=== PATIENT | male | born 1935 | race Caucasian/White ===

== ENCOUNTER 2017-03-29 11:00 | Emergency (ER) | payer MEDICARE ==
[~2017-03-29] VITALS: Ht 172.7 cm; Wt 80.0 kg
[~2017-03-29 11:00] MED LIST: ASPI325T PO; ATOR40TA49 PO; B12-1CHW CHEW; CLEO300C2 PO; CREO2400 PO; DOXY100T17 PO; IMDU30TA PO; INSU100V2 SQ; LANTUSP SQ; LEVE500T10 PO; LISI-363 PO; METO25TA6 PO; OMPR20CCR PO; PARO20TA PO
[2017-03-29 11:05] VITALS: BP 194/94; PULSE 60; RESP 20; TEMP 96.9; O2SAT 96
--- NOTE | 2017-03-29 11:40 | PD ---
HPI Chief Complaint: Laceration/Skin Injury Time Seen by Provider: 11:18 Travel History International Travel<30 days: No Contact w/Intl Traveler<30days: No Traveled to known affect area: No History of Present Illness HPI 81-year-old male presents to the emergency room for evaluation of a laceration to his left dorsal hand that occurred just prior to arrival. Patient was lying weather stripping to his door. While cutting the stripping with his razor blade , it slipped and cut his left hand. States he cannot get the bleeding to stop which is mostly the reason he came to the emergency room. He did not wash it but applied pressure. He takes baby aspirin daily. Denies loss of range of motion or significant pain. Last tetanus was one year ago. 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 Reported Meds & Prescriptions Reported Meds & Active Scripts Active Doxycycline Hyclate 100 Mg Tab 100 Mg PO BID 7 Days Cleocin (Clindamycin HCl) 300 Mg Cap 300 Mg PO QID Reported Humulin R (Insulin Human Regular) 100 Units/Ml Vial 1 Unit SQ SLIDINGSCALE Creon (Amylase/Lipase/Protease) 24,000 Unt Cap 1 Cap PO DAILY GIVE WITH FOOD Lipitor 40 Mg Tab (Atorvastatin Calcium) 40 Mg Tab 40 Mg PO DAILY Lisinopril 20 Mg Tab 25 Mg PO DAILY Lantus (Insulin Glargine) 100 Units/Ml Inj 14 SQ HS UNKNOWN DOSE [id number] (Mecobalamin) 1 Mg Chw 1 Mg CHEW DAILY Prilosec 20 Mg Cap (Omeprazole) 20 Mg Capcr 20 Mg PO DAILY Toprol Xl 25 mg Tab (Metoprolol Succinate) 25 Mg Tabcr 25 Mg PO DAILY Levetiracetam 500 Mg Tab 500 Mg PO DAILY Paroxetine Hcl (Paroxetine HCl) 20 Mg Tab 20 Mg PO DAILY Imdur (Isosorbide Mononitrate) 30 Mg Tab 30 Mg PO DAILY Aspirin 325 Mg Tab (Aspirin) 325 Mg Tab 325 Mg PO DAILY Review of Systems Except as stated in HPI: all other systems reviewed are Neg Physical Exam Narrative GENERAL: Well-nourished, well-developed male in no acute distress. Afebrile. Ambulatory. SKIN: Focused skin assessment warm/dry. There is a 3 cm superficial laceration to the left dorsal hand that is well approximated. HEAD: Normocephalic. EYES: No scleral icterus. No injection or drainage. NECK: Supple, trachea midline. No JVD or lymphadenopathy. CARDIOVASCULAR: Regular rate and rhythm without murmurs, gallops, or rubs. RESPIRATORY: Breath sounds equal bilaterally. No accessory muscle use. MUSCULOSKELETAL: No cyanosis, or edema. Full range motion of the left hand. Less than 2 second capillary refill distally. Data Data Last Documented VS Vital Signs Date Time Temp Pulse Resp B/P (MAP) Pulse Ox O2 Delivery O2 Flow Rate FiO2 03/29/17 11:05 96.9 60 20 194/94 (127) 96 Room Air MDM Medical Decision Making Medical Screen Exam Complete: Yes Emergency Medical Condition: Yes Medical Record Reviewed: Yes Differential Diagnosis Laceration, skin tear, contusion, bleeding wound Narrative Course 81-year-old male presents to the emergency room for evaluation of laceration to the left dorsal hand that occurred just prior to arrival. Patient accidentally cut himself with a razor blade. He could not get the bleeding to stop. Physical exam reveals a 3 cm superficial laceration to the left dorsal hand that is well approximated and not bleeding. There is no neurovascular or tendon injury. Laceration was thoroughly cleansed and repaired with Steri- Strips and glue. Patient was provided with wound care instructions and told to follow up with the primary care physician as needed or return for worsening symptoms. He understands and agrees to plan. Diagnosis Primary Impression: Laceration of left hand Qualified Codes: S61.412A - Laceration without foreign body of left hand, initial encounter Referrals: Primary Care Physician Additional Instructions: Keep wound clean and dry. Once glue and Steri-Strips fall off, Apply triple antibiotic ointment daily until healed. Follow-up with a primary care physician as needed. Return to the emergency room for signs of infection. Disposition: 01 DISCHARGE HOME Condition: Stable Mena [place] Mar 29, 2017 11:40
== END 2017-03-29 11:48 | disposition home or self-care (01) ==
LOC: NEPK 11:00
DX: S61.412A Laceration without foreign body of left hand, initial encounter (principal); E11.9 Type 2 diabetes mellitus without complications; W27.8XXA Contact with other nonpowered hand tool, initial encounter; Z79.4 Long term (current) use of insulin; Z79.899 Other long term (current) drug therapy
CPT/HCPCS: 12002

== ENCOUNTER 2017-05-10 20:54 | Observation (INO) | payer MEDICARE ==
[~2017-05-10] VITALS: Ht 170.2 cm; Wt 81.0 kg
[2017-05-10 20:57] VITALS: BP 167/90; PULSE 91; RESP 22; TEMP 98.6; O2SAT 95
[2017-05-10 21:08] VITALS: BP 157/67; PULSE 69; RESP 18; TEMP 98.1; O2SAT 96
[2017-05-10] MEDS: NITROGLYCERIN 0.4 MG SL 25 TABS/BTL SL SCH ×3 (21:15→21:25)
[2017-05-10] MEDS ORDERED: SODIUM CHLORIDE 0.9% FLUSH 10 ML FLUSH IVF PRN (21:15)
[2017-05-10] MEDS ORDERED: ASPIRIN 81 MG CHEW TAB PO ONE (21:15)
--- NOTE | 2017-05-10 21:15 | PD ---
HPI Chief Complaint: Chest Pain Time Seen by Provider: 21:02 Travel History International Travel<30 days: No Contact w/Intl Traveler<30days: No Traveled to known affect area: No History of Present Illness HPI 82-year-old male presents with history of dementia, pancreatic cancer colon cancer both in remission, presents to the emergency department with his for evaluation of acute onset chest pressure that began approximately 2 hours ago. He did have an episode of emesis. He also felt short of breath. The pain radiated to his jaw and behind his eye. He is currently having moderate pain. Is not radiating anywhere. He denies any recent illnesses, fever, chills. Has no other symptoms to report. Patient's last stress test was about 2 years ago per his . 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 [facility] Past Medical History Heart Rhythm Problems: Yes (PACEMAKER) Cancer: Yes (HX PANCREATIC, COLON) Dementia: Yes Diabetes: Yes Patient Takes Glucophage: No Diminished Hearing: No Hypertension: Yes Immunizations Current: Yes Past Surgical History Body Medical Devices: PACEMAKER Cardiac Surgery: Yes (BYPASS) Genitourinary Surgery: Yes (3X HERNIA, COLON RESECTION, WHIPPLE) Social History Alcohol Use: No Tobacco Use: No Substance Use: No Allergies-Medications (Allergen,Severity, Reaction): Coded Allergies: erythromycin base (Unverified Allergy, Mild, 05/10/17) *MDRO Multi-Drug Resistant Organism (Verified Allergy, Unknown, 05/10/17) MRSA Reported Meds & Prescriptions Reported Meds & Active Scripts Active Reported Lisinopril 2.5 Mg Tab 2.5 Mg PO DAILY Levetiracetam 750 Mg Tab 750 Mg BID B-12 (Cyanocobalamin) 1,000 Mcg Subl 1,000 Mcg SL DAILY Aspirin EC (Aspirin) 325 Mg Tabdr 325 Mg PO DAILY Lorazepam 0.5 Mg Tab 0.5 Mg PO DAILY PRN Metoprolol Tartrate 25 Mg Tab 12.5 Mg PO BID Isosorbide Mononitrate 10 Mg Tab 30 Mg PO DAILY Take 2 doses 7 hours apart. Ipratropium Nasal 0.06% Suches 2 Suches EACH NARE BID Lantus Inj (Insulin Glargine) 1,000 Unit/10 Ml Vial 16 Units SQ HS Fluocinonide Topical (Fluocinonide) 0.05% Cream 1 Applic TOPICAL BID Apply thin layer to affected area(s) Creon (Amylase/Lipase/Protease) 24,000-76,000-120,000 Units Cap 1 Cap PO DAILY Calcipotriene Topical (Calcipotriene) 0.005% Oint 1 Applic TOPICAL DAILY Atorvastatin (Atorvastatin Calcium) 80 Mg Tab 80 Mg PO HS Artificial Tears Opth Drops (Polyvinyl Alcohol) 1.4% Soln 1-2 Drop EACH EYE PRN PRN Review of Systems Except as stated in HPI: all other systems reviewed are Neg Physical Exam Narrative GENERAL: Well-nourished, pleasantly confused, elderly male patient, lying in bed in no acute distress. SKIN: Focused skin assessment warm/dry. HEAD: Atraumatic. Normocephalic. EYES: Pupils equal and round. No scleral icterus. No injection or drainage. ENT: No nasal bleeding or discharge. Mucous membranes pink and moist. NECK: Trachea midline. No JVD. CARDIOVASCULAR: Regular rate and rhythm. RESPIRATORY: No accessory muscle use. Clear to auscultation. Breath sounds equal bilaterally. GASTROINTESTINAL: Abdomen soft, non-tender, nondistended. Hepatic and splenic margins not palpable. MUSCULOSKELETAL: No obvious deformities. No clubbing. No cyanosis. No edema. NEUROLOGICAL: Awake and alert. No obvious cranial nerve deficits. Motor grossly within normal limits. Normal speech. PSYCHIATRIC: Appropriate mood and affect; insight and judgment normal. Data Data Last Documented VS Vital Signs Date Time Temp Pulse Resp B/P (MAP) Pulse Ox O2 Delivery O2 Flow Rate FiO2 05/10/17 21:16 98 Room Air 05/10/17 21:16 18 05/10/17 21:08 98.1 69 Orders Orders Electrocardiogram (05/10/17 21:07) Basic Metabolic Panel (Bmp) (05/10/17 21:07) B-Type Natriuretic Peptide (05/10/17 21:07) Ckmb (Isoenzyme) Profile (05/10/17 21:07) Complete Blood Count With Diff (05/10/17 21:07) Magnesium (Mg) (05/10/17 21:07) Prothrombin Time / Inr (Pt) (05/10/17 21:07) Act Partial Throm Time (Ptt) (05/10/17 21:07) Troponin I (05/10/17 21:07) Lipase (05/10/17 21:07) Chest, Single Ap (05/10/17 21:07) Ecg Monitoring (05/10/17 21:07) Bilateral Bp Monitoring (05/10/17 21:07) Iv Access Insert/Monitor (05/10/17 21:07) Oximetry (05/10/17 21:07) Oxygen Administration (05/10/17 21:07) Aspirin Chew (Aspirin Chew) (05/10/17 21:15) Sodium Chloride 0.9% Flush (Ns Flush) (05/10/17 21:15) Nitroglycerin Sl (Nitrostat Sl) (05/10/17 21:15) CKMB (05/10/17 21:20) CKMB% (05/10/17 21:20) Activity Bed Rest With Brp (05/10/17 22:38) Vital Signs (Adult) Q4H (05/10/17 22:38) Cardiac Rhythm .As Directed (05/10/17 22:38) Notify Dr: Other .PRN (05/10/17 22:38) Notify DrYousuf Parameters (05/10/17 22:38) Resp Oxygen Nasal Cannula (05/10/17 ) Diet Npo (05/11/17 Breakfast) Ckmb (Isoenzyme) Profile (05/11/17 00:20) Ckmb (Isoenzyme) Profile (05/11/17 03:20) Troponin I (05/11/17 00:20) Troponin I (05/11/17 03:20) Electrocardiogram (05/11/17 00:20) Electrocardiogram (05/11/17 03:20) ^ Obtain (05/10/17 22:38) Sodium Chloride 0.9% Flush (Ns Flush) (05/10/17 22:45) Sodium Chloride 0.9% Flush (Ns Flush) (05/11/17 09:00) Acetaminophen (Tylenol) (05/10/17 22:45) Nitroglycerin Sl (Nitrostat Sl) (05/10/17 22:45) Drug Safety Physician / Telemetry SYLVESTER.Q8H (05/10/17 22:38) Chandan Bilateral/Knee High SYLVESTER.QSHIFT (05/10/17 22:38) Admit Order (Ed Use Only) (05/10/17 22:41) Labs Laboratory Tests Test 05/10/17 21:20 White Blood Count 4.7 TH/MM3 Red Blood Count 4.15 MIL/MM3 Hemoglobin 13.6 GM/DL Hematocrit 38.9 % Mean Corpuscular Volume 93.9 FL Mean Corpuscular Hemoglobin 32.8 PG Mean Corpuscular Hemoglobin Concent 34.9 % Red Cell Distribution Width 14.1 % Platelet Count 162 TH/MM3 Mean Platelet Volume 8.1 FL Neutrophils (%) (Auto) 86.8 % Lymphocytes (%) (Auto) 8.5 % Monocytes (%) (Auto) 3.4 % Eosinophils (%) (Auto) 1.0 % Basophils (%) (Auto) 0.3 % Neutrophils # (Auto) 4.1 TH/MM3 Lymphocytes # (Auto) 0.4 TH/MM3 Monocytes # (Auto) 0.2 TH/MM3 Eosinophils # (Auto) 0.0 TH/MM3 Basophils # (Auto) 0.0 TH/MM3 CBC Comment DIFF FINAL Differential Comment Prothrombin Time 11.1 SEC Prothromb Time International Ratio 1.1 RATIO Activated Partial Thromboplast Time 20.4 SEC Blood Urea Nitrogen 18 MG/DL Creatinine 1.46 MG/DL Random Glucose 104 MG/DL Calcium Level 8.9 MG/DL Magnesium Level 2.1 MG/DL Sodium Level 139 MEQ/L Potassium Level 4.1 MEQ/L Chloride Level 104 MEQ/L Carbon Dioxide Level 25.4 MEQ/L Anion Gap 10 MEQ/L Estimat Glomerular Filtration Rate 46 ML/MIN Total Creatine Kinase 332 U/L Creatine Kinase MB 4.5 NG/ML Creatine Kinase MB % 1.4 % Troponin I LESS THAN 0.02 NG/ML B-Type Natriuretic Peptide 66 PG/ML Lipase 139 U/L [facility] Medical Decision Making Medical Screen Exam Complete: Yes Emergency Medical Condition: Yes Medical Record Reviewed: Yes Differential Diagnosis ACS versus pleuritic pain versus chest wall pain versus muscle spasm Narrative Course 82-year-old male presents to emergency department for evaluation of chest pain, acute onset 2 hours prior to arrival. Patient appears well without distress. EKG is complete and reviewed by my attending. Patient did take an aspirin today prior to arrival. We gave him sublingual nitroglycerin. Upon reassessment, pain has completely resolved following the nitroglycerin. Laboratory Tests Test 05/10/17 21:20 White Blood Count 4.7 TH/MM3 Red Blood Count 4.15 MIL/MM3 Hemoglobin 13.6 GM/DL Hematocrit 38.9 % Mean Corpuscular Volume 93.9 FL Mean Corpuscular Hemoglobin 32.8 PG Mean Corpuscular Hemoglobin Concent 34.9 % Red Cell Distribution Width 14.1 % Platelet Count 162 TH/MM3 Mean Platelet Volume 8.1 FL Neutrophils (%) (Auto) 86.8 % Lymphocytes (%) (Auto) 8.5 % Monocytes (%) (Auto) 3.4 % Eosinophils (%) (Auto) 1.0 % Basophils (%) (Auto) 0.3 % Neutrophils # (Auto) 4.1 TH/MM3 Lymphocytes # (Auto) 0.4 TH/MM3 Monocytes # (Auto) 0.2 TH/MM3 Eosinophils # (Auto) 0.0 TH/MM3 Basophils # (Auto) 0.0 TH/MM3 CBC Comment DIFF FINAL Differential Comment Prothrombin Time 11.1 SEC Prothromb Time International Ratio 1.1 RATIO Activated Partial Thromboplast Time 20.4 SEC Blood Urea Nitrogen 18 MG/DL Creatinine 1.46 MG/DL Random Glucose 104 MG/DL Calcium Level 8.9 MG/DL Magnesium Level 2.1 MG/DL Sodium Level 139 MEQ/L Potassium Level 4.1 MEQ/L Chloride Level 104 MEQ/L Carbon Dioxide Level 25.4 MEQ/L Anion Gap 10 MEQ/L Estimat Glomerular Filtration Rate 46 ML/MIN Total Creatine Kinase 332 U/L Creatine Kinase MB 4.5 NG/ML Creatine Kinase MB % 1.4 % Troponin I LESS THAN 0.02 NG/ML B-Type Natriuretic Peptide 66 PG/ML Lipase 139 U/L Last Impressions Chest X-Ray 05/10/172106 Signed Impressions: Service Date/Time: April 21:56 - CONCLUSION: 1. Basilar density most characteristic of atelectasis. Cardiomegaly with pacer leads in right atrium and right ventricle. Magnus Moreno MD Work and radiology findings are reviewed and discussed with my attending physician. Patient will be admitted observation to the chest pain center Diagnosis Primary Impression: Chest pain Qualified Codes: R07.9 - Chest pain, unspecified Admitting Information Admitting Physician Requests: Observation Condition: Stable Angie Stephen May 10, 2017 21:15
[2017-05-10 21:16] VITALS: RESP 18; O2SAT 98
[2017-05-10] MEDS ORDERED: LISI2.5T3 PO (21:16)
[2017-05-10] MEDS ORDERED: LEVE750T8 (21:16)
[2017-05-10] MEDS ORDERED: ISOS10TA3 PO (21:16)
[2017-05-10] MEDS ORDERED: FLUO0.05 TOPICAL (21:16)
[2017-05-10] MEDS ORDERED: CALO.005%T TOPICAL (21:16)
[2017-05-10] MEDS ORDERED: POLY99.0 EACH EYE (21:16)
[2017-05-10] MEDS ORDERED: LORA0.5T PO (21:16)
[2017-05-10] MEDS ORDERED: IPRA0.06 EACH NARE (21:16)
[2017-05-10] MEDS ORDERED: METO25TA3 PO (21:16)
[2017-05-10] MEDS ORDERED: ATOR80TA45 PO (21:16)
[2017-05-10] MEDS ORDERED: CREON24 PO (21:16)
[2017-05-10] MEDS ORDERED: CYAN100025 SL (21:16)
[2017-05-10] MEDS ORDERED: LANTUS2P SQ (21:16)
[2017-05-10] MEDS ORDERED: ASPI325T33 PO (21:16)
[2017-05-10 21:47] LABS: AUTOMATED NEUTROPHIL # 4.1 TH/MM3 (1.8-7.7); BASOPHIL % 0.3 % (0.0-2.0); HEMATOCRIT 38.9 % (39.0-51.0); HEMOGLOBIN 13.6 GM/DL (13.0-17.0); LYMPH % 8.5 % (9.0-44.0); LYMPHOCYTE # 0.4 TH/MM3 (1.0-4.8); MEAN CELL VOLUME 93.9 FL (80.0-100.0); MEAN CORPUSCULAR HEMOGLOBIN 32.8 PG (27.0-34.0); MEAN CORPUSCULAR HGB CONC 34.9 % (32.0-36.0); MEAN PLATELET VOLUME 8.1 FL (7.0-11.0); MONO % 3.4 % (0.0-8.0); MONOCYTE # 0.2 TH/MM3 (0-0.9); NEUT % 86.8 % (16.0-70.0); PLATELET COUNT 162 TH/MM3 (150-450); RED BLOOD COUNT 4.15 MIL/MM3 (4.50-5.90); RED CELL DISTRIBUTION WIDTH 14.1 % (11.6-17.2); WHITE BLOOD COUNT 4.7 TH/MM3 (4.0-11.0)
[2017-05-10 22:02] LABS: INTERNATIONAL NORMALIZED RATIO 1.1 RATIO; PROTHROMBIN TIME - PATIENT 11.1 SEC (9.8-11.6)
[2017-05-10 22:08] LABS: BICARBONATE 25.4 MEQ/L (21.0-32.0); BLOOD UREA NITROGEN 18 MG/DL (7-18); CALCIUM 8.9 MG/DL (8.5-10.1); CHLORIDE 104 MEQ/L (98-107); CREATININE 1.46 MG/DL (0.60-1.30); GLOMERULAR FILTRATION RATE 46 ML/MIN (>89); GLUCOSE,RANDOM 104 MG/DL (74-106); MAGNESIUM 2.1 MG/DL (1.5-2.5); SODIUM (NA) 139 MEQ/L (136-145)
[2017-05-10 22:13] LABS: TROPONIN I LESS THAN 0.02 NG/ML (0.02-0.05)
--- NOTE | 2017-05-10 22:24 | RADRPT ---
EXAM DATE/TIME: 05/10/2017 21:56 [facility] COMPARISON: No previous studies available for comparison. INDICATIONS : Chest pain and general weakness. MEDICAL HISTORY : SURGICAL HISTORY : CABG, Pacemaker. ENCOUNTER: Initial ACUITY: 1 day PAIN SCORE: 5/10 LOCATION: Bilateral chest FINDINGS: A single view of the chest demonstrates subsegmental basilar airspace disease. Pacer leads overlie ri ght atrium and right ventricle. Previous sternotomy. Cardiomegaly. No pneumothorax. CONCLUSION: 1. Basilar density most characteristic of atelectasis. Cardiomegaly with pacer leads in right atrium and right ventricle. Magnus Moreno MD on May 10, 2017 at 22:22 Board Certified Radiologist. This report was verified electronically.
[2017-05-10] MEDS ORDERED: SODIUM CHLORIDE 0.9% FLUSH 10 ML FLUSH IV FLUSH PRN (22:45)
[2017-05-10] MEDS ORDERED: NITROGLYCERIN 0.4 MG SL 25 TABS/BTL SL PRN (22:45)
[2017-05-10] MEDS ORDERED: ACETAMINOPHEN 500 MG CPLT PO PRN (22:45)
[2017-05-10 23:06] VITALS: O2SAT 98
[2017-05-10 23:53] VITALS: BP 159/74; PULSE 75; RESP 20; TEMP 97.6; O2SAT 94
[2017-05-11 00:50] LABS: TROPONIN I LESS THAN 0.02 NG/ML (0.02-0.05)
[2017-05-11 01:27] VITALS: PULSE 68
[2017-05-11 03:23] VITALS: BP 114/62; PULSE 74; RESP 20; TEMP 98.7; O2SAT 96
[2017-05-11 03:42] LABS: TROPONIN I LESS THAN 0.02 NG/ML (0.02-0.05)
[2017-05-11 04:01] LABS: BILIRUBIN, URINE NEG (NEG); BLOOD, URINE NEG (NEG); GLUCOSE,URINE NEG (NEG); KETONE, URINE NEG (NEG); NITRITE,URINE NEG (NEG); PH, URINE 5.5 (5.0-8.5); URINE COLOR YELLOW (YELLW/STRAW); URINE LEUKOCYTE ESTERASE NEG (NEG)
[2017-05-11 08:15] VITALS: PULSE 60
[2017-05-11 08:42] VITALS: BP 138/68; PULSE 66; RESP 18; TEMP 97.9; O2SAT 98
--- NOTE | 2017-05-11 08:43 | HHI.HP ---
[facility] Primary Care Physician Osorio Kasper D.O. Chief Complaint Shakes and jaw pain History of Present Illness This is an 82-year-old male with history of CAD with bypass, hypertension, hyperlipidemia, diabetes that presents to ED with his with a complaint primarily of being shaky yesterday. He and his both state that he had some episodes of his whole body shaking. He was able to communicate while this is going on. His states that she gave him 0.5 mg of Ativan which did seem to help with the shaking but then he started to see things that were not there. She states has history of dementia and is memory is declining. He initially denied having any discomforts in his chest but when I went back to discuss plan with the patient his stated that he complained of chest pressure and jaw pain. Patient cannot recall either of these symptoms. Cannot recall being short of breath or diaphoretic. But apparently at the same time he began to have shakes he has had an episode of nonbloody emesis. Denies headache. Denies dizziness. Denies numbness tingling or weakness in extremities. His states he is compliant with all medications. He follows Dr. Pittman. States his last stress test was about 2 years ago. His bypass was in 1997. Has no complaints at this time and is sitting reading a newspaper. Review of Systems General: Patient denies fevers, chills, and recent travel. He states he was shaking a bit. HEENT: Patient denies headache, sore throat, difficulty swallowing. Cardiovascular: Has the chest discomfort as mentioned above. Denies sensation of heart beating rapidly or irregularly. No syncope. Respiratory: Denies shortness of breath or inspirational chest discomfort. Denies coughing wheezing or hemoptysis. GI: Patient denies nausea, vomiting, diarrhea, abdominal pain, bloody stools. Musculoskeletal: Patient denies joint pain or edema. Denies calf pain or edema. Neurovascular: Patient denies numbness, tingling, weakness in extremities. Denies headache. He was feeling a little shaky. Endocrine: Denies polyuria and polydipsia. Hematologic: Denies easy bruising. Skin: Denies rash or itching. 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 Hypertension, hyperlipidemia, and diabetes. History of pancreatic cancer and colon cancer but is in remission. Past Surgical History Pacemaker. CABG. Colon resection. Hernia repair. Whipple procedure. Reported Medications Reported Meds & Active Scripts Active Reported Lisinopril 2.5 Mg Tab 2.5 Mg PO DAILY Levetiracetam 750 Mg Tab 750 Mg BID B-12 (Cyanocobalamin) 1,000 Mcg Subl 1,000 Mcg SL DAILY Aspirin EC (Aspirin) 325 Mg Tabdr 325 Mg PO DAILY Lorazepam 0.5 Mg Tab 0.5 Mg PO DAILY PRN Metoprolol Tartrate 25 Mg Tab 12.5 Mg PO BID Isosorbide Mononitrate 10 Mg Tab 30 Mg PO DAILY Take 2 doses 7 hours apart. Ipratropium Nasal 0.06% Lowland 2 Lowland EACH NARE BID Lantus Inj (Insulin Glargine) 1,000 Unit/10 Ml Vial 16 Units SQ HS Fluocinonide Topical (Fluocinonide) 0.05% Cream 1 Applic TOPICAL BID Apply thin layer to affected area(s) Creon (Amylase/Lipase/Protease) 24,000-76,000-120,000 Units Cap 1 Cap PO DAILY Calcipotriene Topical (Calcipotriene) 0.005% Oint 1 Applic TOPICAL DAILY Atorvastatin (Atorvastatin Calcium) 80 Mg Tab 80 Mg PO HS Artificial Tears Opth Drops (Polyvinyl Alcohol) 1.4% Soln 1-2 Drop EACH EYE PRN PRN Active Ordered Medications Current Medications Medications (Trade) Dose Ordered Sig/Mary Route Start Time Stop Time Status Last Admin (NS Flush) 2 ml UNSCH PRN IVF 05/10/17 21:15 (NS Flush) 2 ml UNSCH PRN IV FLUSH 05/10/17 22:45 (NS Flush) 2 ml BID IV FLUSH 05/11/17 09:00 (Tylenol) 500 mg Q4H PRN PO 05/10/17 22:45 (Nitrostat Sl) 0.4 mg Q5M PRN SL 05/10/17 22:45 Family History There is family history of CAD. Social History Does not smoke, drink alcohol, or use illicit drugs. Physical Exam Vital Signs Vital Signs Date Time Temp Pulse Resp B/P (MAP) Pulse Ox O2 Delivery O2 Flow Rate FiO2 05/11/17 03:23 98.7 74 20 114/62 (79) 96 05/11/17 01:27 68 05/10/17 23:53 97.6 75 20 159/74 (102) 94 05/10/17 23:17 05/10/17 23:06 98 05/10/17 21:16 98 Room Air 05/10/17 21:16 18 98 Room Air 05/10/17 21:08 98.1 69 18 157/67 (97) 96 Room Air 05/10/17 20:57 98.6 91 22 167/90 (115) 95 Room Air Physical Exam GENERAL: This is a well-nourished, well-developed patient, in no apparent distress. Patient speaks in clear complete sentences. Patient is pleasant. He was reading the newspaper while sitting next to his . HEENT: Head is atraumatic and normocephalic. Neck is supple without lymphadenopathy and trachea is midline. No JVD or carotid bruits. CARDIOVASCULAR: Regular rate and rhythm without murmurs, gallops, or rubs. RESPIRATORY: Clear to auscultation. Breath sounds equal bilaterally. No wheezes , rales, or rhonchi. Chest wall is nontender. No use of accessory muscles. GASTROINTESTINAL: Abdomen is nontender, nondistended. Abdomen soft. No obvious pulsatile mass or bruit. No CVA tenderness. Strong femoral pulses bilaterally. Normal bowel sounds in all quadrants. MUSCULOSKELETAL: Patient is moving upper and lower extremities freely. No calf tenderness or edema, no Homans sign. Strong pulses in upper and lower extremities. NEUROLOGICAL: Patient is alert and oriented. Cranial nerves 2-12 are grossly intact. No focal deficits and speech is clear. SKIN: No rash and turgor is normal. Laboratory Laboratory Tests Test 05/10/17 21:20 05/11/17 00:20 05/11/17 02:32 05/11/17 03:15 White Blood Count 4.7 Red Blood Count 4.15 Hemoglobin 13.6 Hematocrit 38.9 Mean Corpuscular Volume 93.9 Mean Corpuscular Hemoglobin 32.8 Mean Corpuscular Hemoglobin Concent 34.9 Red Cell Distribution Width 14.1 Platelet Count 162 Mean Platelet Volume 8.1 Neutrophils (%) (Auto) 86.8 Lymphocytes (%) (Auto) 8.5 Monocytes (%) (Auto) 3.4 Eosinophils (%) (Auto) 1.0 Basophils (%) (Auto) 0.3 Neutrophils # (Auto) 4.1 Lymphocytes # (Auto) 0.4 Monocytes # (Auto) 0.2 Eosinophils # (Auto) 0.0 Basophils # (Auto) 0.0 CBC Comment DIFF FINAL Differential Comment Prothrombin Time 11.1 Prothromb Time International Ratio 1.1 Activated Partial Thromboplast Time 20.4 Blood Urea Nitrogen 18 Creatinine 1.46 Random Glucose 104 Calcium Level 8.9 Magnesium Level 2.1 Sodium Level 139 Potassium Level 4.1 Chloride Level 104 Carbon Dioxide Level 25.4 Anion Gap 10 Estimat Glomerular Filtration Rate 46 Total Creatine Kinase 332 270 260 Creatine Kinase MB 4.5 2.9 2.7 Creatine Kinase MB % 1.4 Troponin I LESS THAN 0.02 LESS THAN 0.02 LESS THAN 0.02 B-Type Natriuretic Peptide 66 Lipase 139 Urine Color YELLOW Urine Turbidity CLEAR Urine pH 5.5 Urine Specific Winn 1.007 Urine Protein NEG Urine Glucose (UA) NEG Urine Ketones NEG Urine Occult Blood NEG Urine Nitrite NEG Urine Bilirubin NEG Urine Urobilinogen LESS THAN 2.0 Urine Leukocyte Esterase NEG Microscopic Urinalysis Comment CULT NOT INDICATED Result Diagram: 05/10/17211905/10/172119 Imaging Last 48 hours Impressions Chest X-Ray 05/10/172106 Signed Impressions: Service Date/Time: April 21:56 - CONCLUSION: 1. Basilar density most characteristic of atelectasis. Cardiomegaly with pacer leads in right atrium and right ventricle. Magnus Moreno MD Course EKGs are paced. Caprini VTE Risk Assessment Caprini VTE Risk Assessment: Mod/High Risk (score >= 2) Caprini Risk Assessment Model Point Value = 1 Point Value = 2 Point Value = 3 Point Value = 5 Age 41-60 Minor surgery BMI > 25 kg/m2 Swollen legs Varicose veins or History of unexplained or recurrent spontaneous Oral contraceptives or hormone replacement Sepsis (< 1 month) Serious lung disease, including pneumonia (< 1 month) Abnormal pulmonary function Acute myocardial infarction Congestive heart failure (< 1 month) History of inflammatory bowel disease Medical patient at bed rest Age 61-74 Arthroscopic surgery Major open surgery (> 45 min) Laparoscopic surgery (> 45 min) Malignancy Confined to bed (> 72 hours) Immobilizing plaster cast Central venous access Age >= 75 History of VTE Family history of VTE Factor V Leiden Prothrombin [id number] Lupus anticoagulant Anticardiolipin antibodies Elevated serum homocysteine Heparin-induced thrombocytopenia Other congenital or acquired thrombophilia Stroke (< 1 month) Elective arthroplasty Hip, pelvis, or leg fracture Acute spinal cord injury (< 1 month) Prophylaxis Regimen Total Risk Factor Score Risk Level Prophylaxis Regimen 0-1 Low Early ambulation 2 Moderate Order ONE of the following: *Sequential Compression Device (SCD) *Heparin 5000 units SQ BID 3-4 Higher Order ONE of the following medications: *Heparin 5000 units SQ TID *Enoxaparin/Lovenox 40 mg SQ daily (WT < 150 kg, CrCl > 30 mL/min) *Enoxaparin/Lovenox 30 mg SQ daily (WT < 150 kg, CrCl > 10-29 mL/min) *Enoxaparin/Lovenox 30 mg SQ BID (WT < 150 kg, CrCl > 30 mL/min) AND/OR *Sequential Compression Device (SCD) 5 or more Highest Order ONE of the following medications: *Heparin 5000 units SQ TID (Preferred with Epidurals) *Enoxaparin/Lovenox 40 mg SQ daily (WT < 150 kg, CrCl > 30 mL/min) *Enoxaparin/Lovenox 30 mg SQ daily (WT < 150 kg, CrCl > 10-29 mL/min) *Enoxaparin/Lovenox 30 mg SQ BID (WT < 150 kg, CrCl > 30 mL/min) AND *Sequential Compression Device (SCD) Assessment and Plan Assessment and Plan * Chest pain: Patient has had serial cardiac enzymes and EKGs were ruling out purposes. He was seen by Dr. Joyner of cardiology in the chest pain center. I discussed this patient with Dr. Forte, he states that patient had a normal PET scan in 2015. We will get a Lexiscan at this time. Patient was discharged home with a stress test was nonischemic with instructions to follow-up with PCP as well as tanning solution maker. Patient was also complaining of being shaky. Really not sure what was the cause of that however likely the patient's hallucination was related to taking Ativan as it began after taking 0.5 mg of Ativan. He is alert and oriented at this time and sitting in a chair reading a newspaper beside his . * CAD: Patient has history of CAD with bypass. This will be reassessed with stress testing. We will continue his medications. * Hypertension: Continue current medications. * Hyperlipidemia: Continue current medication. * Diabetes: Patient will have sliding scale insulin coverage while in the chest pain center. Follow diabetic diet. Resume medication at discharge. Patient is stable at this time. He is agreeable to this plan. Mauri Hare May 11, 2017 08:43
[2017-05-11] MEDS ORDERED: DEXTROSE 50% IN WATER 50 ML VIAL(D50) IV PUSH PRN (09:00)
[2017-05-11] MEDS ORDERED: SODIUM CHLORIDE 0.9% FLUSH 10 ML FLUSH IV FLUSH SCH (09:00)
[2017-05-11] MEDS ORDERED: GLUCAGON 1 MG/ML VIAL OTHER PRN (09:00)
[2017-05-11] MEDS ORDERED: PILL SPLITTER OTHER PRN (09:15)
[2017-05-11] MEDS ORDERED: ISOS20TA PO ×3 (09:29→09:39)
[2017-05-11] MEDS ORDERED: ISOS30TA3 PO (09:42)
[2017-05-11] MEDS ORDERED: ASPIRIN EC 325 MG TABEC PO SCH (10:00)
[2017-05-11] MEDS ORDERED: LIPASE/PROTEASE/AMYLASE (24,000/76,000/120,000) CAP PO SCH (10:00)
[2017-05-11] MEDS ORDERED: LISINOPRIL 5 MG TAB PO SCH (10:00)
[2017-05-11] MEDS ORDERED: METOPROLOL TARTRATE 25 MG TAB PO SCH (10:00)
[2017-05-11] MEDS ORDERED: levETIRAcetam 250 MG TAB PO SCH (10:00)
[2017-05-11] MEDS ORDERED: REGADENOSON INJ 0.4 MG/5 ML SYR ONE (10:03)
[2017-05-11] MEDS ORDERED: ISOSORBIDE MONONITRATE 30 MG CR TAB (IMDUR) PO SCH (10:30)
--- NOTE | 2017-05-11 11:40 | RADRPT ---
EXAM DATE/TIME: 05/11/2017 10:05 [facility] COMPARISON: No previous studies available for comparison. INDICATIONS : Substernal chest pain radiating to the jaw with dyspnea, nausea and vomiting. Angina. DOSE: 26.1 mCi Tc99m Myoview at stress. 8.8 mCi Tc99m Myoview at rest. 0.4 mg Lexiscan STRESS SYMPTOMS: Nausea, dyspnea, and stomach pain. EJECTION FRACTION: 55% MEDICAL HISTORY : Hypertension. Diabetes mellitus type 2. Dementia. SURGICAL HISTORY : Total knee replacement, right. ENCOUNTER: Initial ACUITY: 1 day PAIN SCALE: 5/10 LOCATION: Substernal chest TECHNIQUE: The patient underwent pharmacologic stress with infusion of prescribed dose. Continuous ECG tracing was monitored during stress. Gated SPECT imaging was performed after stress and conventional SPECT i maging was performed at rest. The examination was performed on a SPECT/CT scanner, both attenuation and non-corrected datasets were reviewed. FINDINGS: DISTRIBUTION: The maximum perfused segment at stress is in the inferior wall. PERFUSION STUDY: The pattern of perfusion at stress is within normal limits. GATED STUDY: There is intact wall motion and thickening without hypokinetic or dyskinetic segments. CONCLUSION: 1. No evidence for significant ischemia or infarction. 2. Intact wall motion with EF of 55%. RISK CATEGORY: Low (<1% Annual Mortality Rate) Burt Santos MD on May 11, 2017 at 11:35 Board Certified Radiologist. This report was verified electronically.
--- NOTE | 2017-05-11 11:51 | HHI.DCPOC ---
Discharge Care Plan Diagnosis: (1) Chest pain (2) CAD (coronary artery disease) (3) Hx of CABG (4) DM (diabetes mellitus) (5) Hypertension (6) Hyperlipidemia Goals to Promote Your Health * To prevent worsening of your condition and complications * To maintain your health at the optimal level Directions to Meet Your Goals Take your medications as prescribed Follow your dietary instruction Follow activity as directed Keep your appointments as scheduled Take your immunizations and boosters as scheduled If your symptoms worsen call your PCP, if no PCP go to Urgent Care Center or Emergency Room Smoking is Dangerous to Your Health. Avoid second hand smoke Call the 24-hour hour crisis hotline for domestic abuse at Mauri Hare May 11, 2017 11:51
[2017-05-11] MEDS ORDERED: INSULIN ASPART SUPPLEMENTAL SCALE SQ SCH (12:00)
--- NOTE | 2017-05-11 16:21 | TR ---
Date Performed: 05/11/2017 Time Performed: 10:27:01 DOCTOR: Mary Ellen Joyner DRUG LIST: CLINICAL HISTORY: REASON FOR TEST: CHEST PAIN REASON FOR ENDING: OBSERVATION: CONCLUSION: Lexiscan stress test was performed under standard four minute protocol. Radionuclid e was injected one minute prior to ending the test. No electrocardiographic abormalities were present to suggest ischemia. Nuclear imaging and interpretation are pending. COMMENTS:
--- NOTE | 2017-05-11 16:22 | EKG ---
Date Performed: 05/10/2017 Time Performed: 21:05:11 PTAGE: 82 years EKG: Sinus rhythm MODERATE VOLTAGE CRITERIA FOR LVH, CONSIDER NORMAL VARIANT INFERIOR MYOCARDIAL INFARCTION ABNORMAL E CG Artifact Since PREVIOUS TRACING , no significant change noted PREVIOUS TRACIN12/25/2001 00.59 DOCTOR: Mary Ellen Joyner Interpretating Date/Time 05/11/2017 16:22:08
--- NOTE | 2017-05-11 16:22 | EKG ---
Date Performed: 05/11/2017 Time Performed: 00:11:25 PTAGE: 82 years EKG: Sinus rhythm VOLTAGE CRITERIA FOR LVH INFERIOR MYOCARDIAL INFARCTION ABNORMAL ECG Since PREVIOUS TRACING , no significant change noted PREVIOUS TRACIN05/10/2017 21.05 DOCTOR: Mary Ellen Joyner Interpretating Date/Time 05/11/2017 16:21:48
--- NOTE | 2017-05-11 16:22 | EKG ---
Date Performed: 05/11/2017 Time Performed: 03:27:28 PTAGE: 82 years EKG: ELECTRONIC ATRIAL PACEMAKER MINIMAL VOLTAGE CRITERIA FOR LVH, CONSIDER NORMAL VARIANT INFER IOR MYOCARDIAL INFARCTION ABNORMAL ECG Since PREVIOUS TRACING , now paced PREVIOUS TRACIN05/11/2017 00.11 DOCTOR: Mary Ellen Joyner Interpretating Date/Time 05/11/2017 16:21:31
[2017-05-11] MEDS ORDERED: ATORVASTATIN 80 MG TAB PO SCH (21:00)
--- NOTE | 2017-05-11 23:41 | EKG ---
Date Performed: 05/11/2017 Time Performed: 07:51:57 PTAGE: 82 years EKG: ELECTRONIC ATRIAL PACEMAKER MODERATE VOLTAGE CRITERIA FOR LVH, CONSIDER NORMAL VARIANT INFE RIOR MYOCARDIAL INFARCTION ABNORMAL ECG PREVIOUS TRACING : 05/11/2017 03.27 Since the prior tracing, there has been no significant marshall DOCTOR: Palak Arce Interpretating Date/Time 05/11/2017 23:40:05
== END 2017-05-11 13:09 | disposition home or self-care (01) ==
LOC: NEPC 20:54 → NEDA 22:43 → NEPGCP 23:14
PROVIDERS: ADMIT Internal Medicine Interventional Cardiology; ATTEND Internal Medicine Interventional Cardiology
DX: R07.9 Chest pain, unspecified (principal); R11.2 Nausea with vomiting, unspecified; I20.9 Angina pectoris, unspecified; R06.00 Dyspnea, unspecified; R10.9 Unspecified abdominal pain; R68.84 Jaw pain; R44.3 Hallucinations, unspecified; R11.10 Vomiting, unspecified; I25.119 Atherosclerotic heart disease of native coronary artery with unspecified angina pectoris; I11.9 Hypertensive heart disease without heart failure; I51.7 Cardiomegaly; E78.5 Hyperlipidemia, unspecified; E11.9 Type 2 diabetes mellitus without complications; R94.31 Abnormal electrocardiogram [ECG] [EKG]; F03.90 Unspecified dementia, unspecified severity, without behavioral disturbance, psychotic disturbance, mood disturbance, and anxiety; Z95.1 Presence of aortocoronary bypass graft; Z85.07 Personal history of malignant neoplasm of pancreas; Z85.038 Personal history of other malignant neoplasm of large intestine; Z79.899 Other long term (current) drug therapy; Z79.82 Long term (current) use of aspirin
CPT/HCPCS: 71045; 78452; 80048; 81001; 82550; 82552; 82948; 83690; 83735; 83880; 84484; 85025; 85610; 85730; 93005; 93017; 99285; A9502; G0378; J2785